=== PATIENT | female | born 2005 | race Caucasian/White ===

== ENCOUNTER 2024-07-31 22:28 | Inpatient (IN) | payer BC, OTHER ==
[~2024-07-31] VITALS: Ht 154.9 cm; Wt 54.1 kg
[2024-07-31] MEDS ORDERED: ACETYLCYSTEINE 200MG/ML 20% VIAL 30ML (INJ) IV ONE (23:15)
[2024-07-31 23:50] LABS: BASOPHILS % 0.1 % (0.0-2.0); EOSINOPHILS % 0.1 % (0.0-5.0); HEMATOCRIT. 36.4 % (36.0-48.0); HEMOGLOBIN. 12.1 g/dL (12.0-16.0); LYMPHOCYTES % 19.8 % (20.0-50.0); MEAN CORPUSCULAR HEMOGLOBIN 29.6 pg (28.0-32.0); MEAN CORPUSCULAR HGB CONC 33.2 g/dL (31.0-37.0); MEAN CORPUSCULAR VOLUME 89.2 fL (81.0-99.0); MEAN PLATELET VOLUME 7.6 fl (7.4-10.4); MONOCYTES % 4.1 % (2.0-8.0); NEUTROPHILS % 75.9 % (40.0-76.0); PLATELET 288 x1000/uL (130-400); RED BLOOD CELL COUNT 4.09 mill/uL (4.2-5.4); RED CELL DISTRIBUTION WIDTH 12.6 % (11.6-14.6)
[2024-07-31 23:57] LABS: CHLORIDE 106 mEq/L (98-107); POTASSIUM 4.1 mEq/L (3.5-5.1); SODIUM 138 mEq/L (136-145)
[2024-07-31 23:58] LABS: CARBON DIOXIDE 24 mEq/L (21-32)
[2024-08-01 00:03] LABS: CREATININE 0.6 mg/dL (0.6-1.0); GLUCOSE 107 mg/dL (70-105)
[2024-08-01 00:04] LABS: UREA NITROGEN BLOOD 9 mg/dL (9-23)
[2024-08-01 00:05] LABS: ACETAMINOPHEN 167 ug/mL (10-30); ALANINE AMINOTRANSFERASE 17 IU/L (10-49); ALBUMIN 4.1 g/dL (3.2-4.8); ASPARTATE AMINOTRANSFERASE 18 IU/L (<34)
[2024-08-01 00:06] LABS: BILIRUBIN DIRECT 0.2 mg/dL (<=3.0); BILIRUBIN TOTAL 0.7 mg/dL (0.1-1.0); PROTEIN TOTAL 7.1 g/dL (6.0-8.3)
[2024-08-01 00:15] LABS: CLARITY URINE CLEAR (CLEAR); COLOR URINE YELLOW (YELLOW); GLUCOSE URINE NEGATIVE (NEGATIVE); KETONES URINE 1+ (NEGATIVE); LEUKOCYTE ESTERASE URINE NEGATIVE (NEGATIVE); NITRITE URINE NEGATIVE (NEGATIVE); OCCULT BLOOD URINE 2+ (NEGATIVE); PH URINE 6.5 (4.5-8.0); PROTEIN URINE NEGATIVE (NEGATIVE); SPECIFIC GRAVITY URINE 1.018 (1.005-1.030); UROBILINOGEN URINE 0.2 E.U./dL (0.2-1.0)
[2024-08-01 00:24] LABS: *AMPHETAMINES SCREEN URINE NEGATIVE (NEGATIVE); *BARBITURATES SCREEN URINE NEGATIVE (NEGATIVE); *BENZODIAZEPINES SCREEN URINE NEGATIVE (NEGATIVE); *COCAINE SCREEN URINE NEGATIVE (NEGATIVE); CANNABINOID URINE SCREEN PRESUMPTIVE POSITIVE (NEGATIVE); ECSTASY MDMA SCREEN URINE NEGATIVE (NEGATIVE); METHADONE URINE SCREEN NEGATIVE (NEGATIVE); OPIATES URINE SCREEN NEGATIVE (NEGATIVE); PHENCYCLIDINE URINE SCREEN NEGATIVE (NEGATIVE)
[2024-08-01 00:31] LABS: ETHANOL BLOOD < 10 mg/dL (<10)
[2024-08-01 02:55] LABS: SQUAMOUS EPITHELIAL CELL URINE FEW /lpf (RARE/1+)
[2024-08-01 02:57] LABS: WBC URINE 0-2 /hpf (0-2)
[2024-08-01 02:58] LABS: BACTERIA URINE NONE SEEN; RBC URINE 0-2 /hpf (0-2)
[2024-08-01] MEDS: DEXT 5% IV NR (04:31)
[2024-08-01] MEDS: ACETYLCYSTEINE IV NR (04:31)
[2024-08-01] MEDS: WATER IV NR (04:31)
[2024-08-01 17:30] VITALS: BP 109/77; PULSE 79; RESP 20; TEMP 37
[2024-08-01 20:00] VITALS: BP 99/56; PULSE 70; RESP 20; TEMP 37.2; O2SAT 98
[2024-08-01] MEDS ORDERED: INFLUENZA VACCINE 05/PF 0.5 ML SYRINGE IM ONE (21:00)
[2024-08-01] MEDS ORDERED: ONDANSETRON HCL 4MG/2ML INJ IV PRN (22:45)
[2024-08-01] MEDS ORDERED: IPRATROPIUM/ALBUTEROL 0.5-3(2.5)MG/3ML NEB HHN PRN (22:45)
[2024-08-01] MEDS: SODIUM CHLORIDE 0.9% 1,000 ML IV SCH (23:56)
[2024-08-02] VITALS (7 sets, daily range): BP systolic 90–110; BP diastolic 48–70; PULSE 66–89; RESP 16–20; TEMP 36.7–37.2; O2SAT 97–100
[2024-08-02 03:13] LABS: INR 1.1; PROTHROMBIN TIME 11.9 sec (9.6-11.0)
[2024-08-02 03:58] LABS: TRIGLYCERIDE 110 mg/dL (0-150)
[2024-08-02 03:59] LABS: LDL CHOLESTEROL 111 mg/dL (5-100)
[2024-08-02 04:00] LABS: ACETAMINOPHEN < 2 ug/mL (10-30); CHOLESTEROL 153 mg/dL (<200); HDL CHOLESTEROL 32 mg/dL (>65)
[2024-08-02 06:52] LABS: BASOPHILS % 0.3 % (0.0-2.0); EOSINOPHILS % 1.5 % (0.0-5.0); HEMATOCRIT. 31.8 % (36.0-48.0); HEMOGLOBIN. 10.7 g/dL (12.0-16.0); LYMPHOCYTES % 38.3 % (20.0-50.0); MEAN CORPUSCULAR HEMOGLOBIN 29.2 pg (28.0-32.0); MEAN CORPUSCULAR HGB CONC 33.6 g/dL (31.0-37.0); MEAN CORPUSCULAR VOLUME 86.8 fL (81.0-99.0); MONOCYTES % 7.7 % (2.0-8.0); NEUTROPHILS % 52.2 % (40.0-76.0); PLATELET 242 x1000/uL (130-400); RED BLOOD CELL COUNT 3.66 mill/uL (4.2-5.4); RED CELL DISTRIBUTION WIDTH 12.2 % (11.6-14.6); WHITE BLOOD COUNT 4.8 x1000/uL (4.5-11.0)
[2024-08-02 06:59] LABS: CARBON DIOXIDE 24 mEq/L (21-32); CHLORIDE 107 mEq/L (98-107); POTASSIUM 3.6 mEq/L (3.5-5.1); SODIUM 140 mEq/L (136-145)
[2024-08-02 07:00] LABS: CALCIUM 8.2 mg/dL (8.7-10.4)
[2024-08-02 07:05] LABS: GLUCOSE 95 mg/dL (70-105); TRIGLYCERIDE 73 mg/dL (0-150); UREA NITROGEN BLOOD 6 mg/dL (9-23)
[2024-08-02 07:06] LABS: LDL CHOLESTEROL 115 mg/dL (5-100)
[2024-08-02 07:07] LABS: CHOLESTEROL 153 mg/dL (<200); HDL CHOLESTEROL 33 mg/dL (>65); THYROID STIMULATING HORMONE 1.33 uIU/mL (0.55-4.78)
[2024-08-02 07:40] LABS: CREATININE 0.4 mg/dL (0.6-1.0)
[2024-08-02 10:28] LABS: INR 1.1; PROTHROMBIN TIME 11.9 sec (9.6-11.0)
[2024-08-02 10:39] LABS: ACETAMINOPHEN < 2 ug/mL (10-30); ALANINE AMINOTRANSFERASE 14 IU/L (10-49); ASPARTATE AMINOTRANSFERASE 14 IU/L (<34)
[2024-08-02 10:40] LABS: ALBUMIN 3.7 g/dL (3.2-4.8); BILIRUBIN DIRECT 0.1 mg/dL (<=3.0); BILIRUBIN TOTAL 0.5 mg/dL (0.1-1.0); PROTEIN TOTAL 6.3 g/dL (6.0-8.3)
[2024-08-03] VITALS: BP 97/58; PULSE 71; RESP 14; TEMP 36.8; O2SAT 98
[2024-08-03 04:07] VITALS: BP 106/59; PULSE 73; RESP 14; TEMP 36.2; O2SAT 99
[2024-08-03 08:00] VITALS: BP 118/59; PULSE 81; RESP 18; TEMP 36.4; O2SAT 99
[2024-08-03 12:00] VITALS: BP 105/57; PULSE 65; RESP 18; TEMP 36.6; O2SAT 99
[2024-08-03 16:00] VITALS: BP 102/51; PULSE 61; RESP 16; TEMP 37.6; O2SAT 97
[2024-08-03 20:00] VITALS: BP 108/60; PULSE 66; RESP 20; TEMP 38; O2SAT 100
[2024-08-04] VITALS: BP 93/50; PULSE 88; RESP 20; TEMP 36.8; O2SAT 98
[2024-08-04 04:00] VITALS: BP 111/56; PULSE 68; RESP 20; TEMP 36.7; O2SAT 99
[2024-08-04 08:00] VITALS: BP 97/57; PULSE 80; RESP 14; TEMP 36.7; O2SAT 100
[2024-08-04 12:00] VITALS: BP 100/54; PULSE 68; RESP 14; TEMP 36.9; O2SAT 99
[2024-08-04 16:00] VITALS: BP 101/62; PULSE 75; RESP 16; TEMP 36.8; O2SAT 100
[2024-08-04 16:48] VITALS: BP 101/62; PULSE 75; TEMP 98.2; O2SAT 100
== END 2024-08-04 20:15 | disposition home or self-care (01) | DRG 918 ==
LOC: ER 22:28 → MICUSO 08-01 04:40 → 7WST 08-01 18:16 → 6EST 08-03 08:50
PROVIDERS: ADMIT Internal Medicine; ATTEND Internal Medicine
DX: T39.1X2A Poisoning by 4-Aminophenol derivatives, intentional self-harm, initial encounter (principal); F32.9 Major depressive disorder, single episode, unspecified; Z20.822 Contact with and (suspected) exposure to COVID-19; E86.0 Dehydration; Y92.89 Other specified places as the place of occurrence of the external cause
CPT/HCPCS: 36415; 80048; 80061; 80076; 80305; 80307; 80320; 80329; 81003; 83605; 84443; 85025; 87426; 93005; 99291; J0132; J7030; J7060; G0480